=== PATIENT | male | born 1950 ===

== ENCOUNTER 2016-11-15 05:59 | Day surgery (SDC) | payer MEDICARE, OTHER ==
[2016-11-15 06:46] VITALS: BMI 32.1
[2016-11-15] MEDS ORDERED: Propofol 10 mg/ml Inj (20 ML) ONE (07:59)
[2016-11-15] MEDS ORDERED: Lactated Ringer's 1,000 ML IV ONE (08:05)
--- NOTE | 2016-11-15 08:09 | CP.SDSHP ---
Same Day Surgery H & P - History Proposed Procedure: COLONSCOPY Pre-Op Diagnosis: SEE NOTES - Previous Medical/Surgical History Cardiac: Hypertension, ASHD/CAD Endocrine/Metabolic: Diabetes, Other Neuro: Backaches Misc: Other Pain: 4.Moderate Pain - Allergies Allergies: Allergies No Known Allergies Allergy (Verified 07/08/12 08:19) - Physical Exam General Appearance: N Vital Signs: Vital Signs 11/15/16 07:08 Temperature 98.6 F Pulse Rate 67 Respiratory 19 Rate Blood Pressure 151/75 H O2 Sat by Pulse 97 Oximetry Mental Status: Alert & Oriented x3 Neuro: WNL Heart: Other Lungs: WNL GI: Other - {Optional Preform as Required} Breast: WNL Abdomen: Other Rectal: Other Integument: WNL : WNL Ortho: Other ENT: WNL - Impression Pt. Evaluated Today:Candidate for Anesthesia & Procedure: Yes - Date & Time Time: 08:09 Short Stay Discharge - Short Stay Discharge Admitting Diagnosis/Reason for Visit: HEMORRHAGE OF ANUS AND RECTUM Disposition: HOME/ ROUTINE
[2016-11-15] MEDS ORDERED: Belladonna-Phenobarbital PO ONE (08:15)
[2016-11-15 08:40] VITALS: TEMP 96.8
[2016-11-15 09:15] VITALS: RESP 12
[2016-11-15 10:17] VITALS: BP 147/62; PULSE 61; O2SAT 99
== END 2016-11-15 10:00 | disposition home or self-care (01) ==
LOC: C.ENDO 05:59
PROVIDERS: ATTEND Specialist
DX: K62.5 Hemorrhage of anus and rectum (principal); K60.2 Anal fissure, unspecified; K64.8 Other hemorrhoids
CPT/HCPCS: 45380; 82948; 88305; J2405; J2704; J2765; J7120

== ENCOUNTER 2018-05-01 09:50 | Outpatient (CLI) | payer MEDICARE, OTHER | END 2018-05-01 09:51 | disposition home or self-care (01) | LOC: C.VASC 09:50 | DX: I70.203 Unspecified atherosclerosis of native arteries of extremities, bilateral legs (principal) ==

== ENCOUNTER 2018-05-06 07:24 | Day surgery (SDC) | payer MEDICARE, OTHER ==
[2018-05-06 08:48] VITALS: BMI 39.0
[2018-05-06] MEDS ORDERED: Propofol 10 mg/ml Inj (20 ML) ONE ×2 (11:18→11:36)
--- NOTE | 2018-05-06 11:25 | CP.SDSHP ---
Same Day Surgery H & P - History Proposed Procedure: colonscopy Pre-Op Diagnosis: SEE NOTES - Previous Medical/Surgical History Cardiac: Hypertension, Other Endocrine/Metabolic: Diabetes, Other Neuro: Backaches, Other Misc: Other Pain: 4.Moderate Pain Previous Surgical History: [facility] AMBUTATION - Allergies Allergies: Allergies No Known Allergies Allergy (Verified 12/27/16 06:50) - Physical Exam General Appearance: N Vital Signs: Vital Signs 05/06/18 08:57 Temperature 97 F L Pulse Rate 80 Respiratory 20 Rate Blood Pressure 165/66 H O2 Sat by Pulse 99 Oximetry Mental Status: Alert & Oriented x3 Neuro: WNL Heart: Other Lungs: WNL GI: Other - {Optional Preform as Required} Breast: WNL Abdomen: Other Rectal: Other Integument: WNL : Other Ortho: Other ENT: WNL - Impression Pt. Evaluated Today:Candidate for Anesthesia & Procedure: Yes - Date & Time Time: 11:27 Short Stay Discharge - Short Stay Discharge Admitting Diagnosis/Reason for Visit: PERSONAL HISTORY OF COLONIC POLYPS Disposition: HOME/ ROUTINE
[2018-05-06] MEDS ORDERED: Lidocaine Hydrochloride 5 ML INJ ONE (11:33)
[2018-05-06] MEDS ORDERED: Midazolam 2 MG/2 ML VIAL ONE (11:34)
[2018-05-06] MEDS ORDERED: Belladonna-Phenobarbital PO ONE (12:00)
[2018-05-06 12:31] VITALS: TEMP 97.1
[2018-05-06 13:55] VITALS: PULSE 69; RESP 20
[2018-05-06 14:04] VITALS: BP 156/79; O2SAT 99
== END 2018-05-06 13:55 | disposition home or self-care (01) ==
LOC: C.ENDO 07:24
PROVIDERS: ATTEND Specialist
DX: D12.2 Benign neoplasm of ascending colon (principal); D12.0 Benign neoplasm of cecum; D12.5 Benign neoplasm of sigmoid colon; K57.90 Diverticulosis of intestine, part unspecified, without perforation or abscess without bleeding; K64.8 Other hemorrhoids
CPT/HCPCS: 45385; 82948; 88305; J2250; J2704

== ENCOUNTER → 2018-05-27 | Outpatient (CLI) | payer MEDICARE, OTHER | END | disposition home or self-care (01) | LOC: C.LAB 10:25 | DX: Z01.818 Encounter for other preprocedural examination (principal) ==

== ENCOUNTER 2018-06-16 08:50 | Outpatient (CLI) | payer MEDICARE, OTHER | END 2018-06-16 08:51 | disposition home or self-care (01) | LOC: C.LAB 08:50 | DX: H93.13 Tinnitus, bilateral (principal) ==

== ENCOUNTER 2018-07-03 14:02 | Outpatient (CLI) | payer MEDICARE, OTHER | END 2018-07-03 14:03 | disposition home or self-care (01) | LOC: C.MRIC 14:03 ==